=== PATIENT | male | born 1950 | race Caucasian/White ===

== ENCOUNTER → 2021-12-21 | Outpatient (CLI) | payer MEDICARE, OTHER | LOC: LAB 13:57 | DX: Z01.812 Encounter for preprocedural laboratory examination (principal) | CPT/HCPCS: 36415; 82565; 84520 ==

== ENCOUNTER → 2021-12-27 | Outpatient (CLI) | payer MEDICARE, OTHER | LOC: EMI 12-22 08:00 | DX: M89.8X5 Other specified disorders of bone, thigh (principal); M51.37 Other intervertebral disc degeneration, lumbosacral region; M51.27 Other intervertebral disc displacement, lumbosacral region | CPT/HCPCS: 72148; 73720; A9577 ==

== ENCOUNTER → 2022-01-31 | Outpatient (CLI) | payer MEDICARE, OTHER | LOC: KOH-I 01-24 10:30 | DX: M62.81 Muscle weakness (generalized) (principal); M22.41 Chondromalacia patellae, right knee; M67.863 Other specified disorders of tendon, right knee | CPT/HCPCS: 73721 ==